=== PATIENT | female | born 1935 | race Caucasian/White ===

== ENCOUNTER 2018-04-15 10:41 | Emergency (ER) | END 2018-04-15 15:08 | disposition home or self-care (01) ==

== ENCOUNTER 2018-12-16 13:42 | Emergency (ER) | payer OTHER ==
[~2018-12-16] VITALS: Wt 72.0 kg
[~2018-12-16 13:42] MED LIST: ATOR20TA38 PO; INSU100C SQ; LANT3I SC; LOSA1TAB25 PO; METF-480 PO; METO-319 PO; ONDA4TAB14 PO
[2018-12-16 13:48] VITALS: BP 178/78; PULSE 104; RESP 18
[2018-12-16] MEDS ORDERED: HC30CR25 TOP (15:25)
[2018-12-16] MEDS ORDERED: BEN25 PO (15:25)
--- NOTE | 2018-12-16 15:27 | ERD ---
ER Documentation Chief Complaint Chief Complaint RASH TO UPPER ARM AND SHOULDER FOR THE PAST 2 DAYS. NO SOB OR STRIDOR HPI 83-year-old female presents with itchy rash on her bilateral upper extremities for last 2 days patient has shortness of breath, fevers, known potential allergens. She denies any new medications or new foods. ROS All systems reviewed and are negative except as per history of present illness. Medications Home Meds Active Scripts Diphenhydramine Hcl* (Benadryl*) 25 Mg Cap, 25 MG PO Q6, #20 CAP Prov:ERIC ESTEVEZ MD 12/16/18 Hydrocortisone* Topical (Hydrocortisone* Topical) 2.5%-28.3 Gm Cream..g., 1 APPLIC TOP BID for 7 Days, #1 TUB Prov:ERIC ESTEVEZ MD 12/16/18 Ondansetron (Ondansetron Odt) 4 Mg Tab.rapdis, 4 MG PO Q6H PRN for NAUSEA AND/OR VOMITING, #10 TAB Prov:JESUS SANON MD 04/15/18 Reported Medications Insulin Lispro (Humalog) 100 Unit/1 Ml Cartridge, 18 UNIT SQ WITH MEALS, EA 04/15/18 Insulin Glargine* (Lantus*) 100 Unit/Ml Soln, 36 UNIT SC QHS, #1 VIAL 04/15/18 Atorvastatin Calcium* (Atorvastatin Calcium*) 20 Mg Tablet, 20 MG PO QHS, #30 TAB 04/15/18 Losartan-Hydrochlorothiazide (Losartan-HCTZ) 100-25 Mg Tab, 1 TAB PO DAILY, TAB 04/15/18 Metoprolol Succinate* (Toprol XL*) 50 Mg Tab.er.24h, 50 MG PO DAILY, #30 TAB 04/15/18 Metformin* (Glucophage*) 850 Mg Tablet, 850 MG PO BID WITH MEALS, #90 TAB 04/15/18 Allergies Allergies: Coded Allergies: Sulfa (Sulfonamide Antibiotics) (Verified Allergy, Severe, 04/15/18) PMhx/Soc History of Surgery: Yes (cholesystectomy, hysterectomy, cataracts bilateral) Anesthesia Reaction: No Hx Neurological Disorder: No Hx Respiratory Disorders: No Hx Cardiac Disorders: Yes (IDDM, HTN, hyperlipidemia) Hx Psychiatric Problems: No Hx Miscellaneous Medical Probl: No Hx Alcohol Use: No Hx Substance Use: No Hx Tobacco Use: No FmHx Family History: No diabetes, No coronary disease, No other Physical Exam Vitals Vital Signs Date Temp Pulse Resp B/P (MAP) Pulse Ox O2 O2 Flow FiO2 Time Delivery Rate 12/16/18 98.8 104 18 178/78 98 13:48 (111) Physical Exam Const: No acute distress Head: Atraumatic Eyes: Normal Conjunctiva ENT: Normal External Ears, Nose and Mouth. Neck: Full range of motion. No meningismus. Resp: Clear to auscultation bilaterally Cardio: Regular rate and rhythm, no murmurs Abd: Soft, non tender, non distended. Normal bowel sounds Skin: No petechiae or purpura. Excoriated maculopapular rash on the upper extremities and trapezius areas. She has no induration, streaking, vesicles, weeping. Back: No midline or flank tenderness Ext: No cyanosis, or edema Neur: Awake and alert Psych: Normal Mood and Affect Procedures/MDM Patient presents with a itchy rash on her upper extremities bilaterally. Which does not correlate with shingles. Is no signs of anaphylaxis, cellulitis, purpura or life-threatening rashes. Will treat with Benadryl, cortisone, primary follow-up and return precautions. The patient was stable with no new complaints during the ER course. Clinically, there is no current evidence to suggest meningitis, sepsis, acute abdomen, pneumonia, stroke, acute coronary syndrome, pulmonary embolism, aortic dissection or any other emergent condition appearing to require further evaluation or hospitalization. Patient counseled regarding my diagnostic impression and care plan. Prior to discharge all questions answered. Pt agrees with treatment plan and understands strict return precautions. Pt is instructed to follow up with primary care provider within 24- 48 hours. Precautionary instructions provided including instructions to return to the ER if not improving or for any worsening or changing symptoms or conc erns. Departure Diagnosis: Primary Impression: Rash Condition: Stable Patient Instructions: Dermatitis, Non-Specific Referrals: NO PRIMARY,CARE PHYSICIAN (PCP) Additional Instructions: Cheque otro vez con al doctor primario en el proximo herrera or regresa para mas o nueva simptomas. ERIC ESTEVEZ MD Dec 16, 2018 15:27
== END 2018-12-16 15:38 | disposition home or self-care (01) ==
LOC: FTE 13:42
DX: R21 Rash and other nonspecific skin eruption (principal); I10 Essential (primary) hypertension; E11.9 Type 2 diabetes mellitus without complications; Z79.4 Long term (current) use of insulin
CPT/HCPCS: 99282